=== PATIENT | female | born 1990 | race Caucasian/White ===

== ENCOUNTER 2017-10-24 07:10 | Inpatient (IN) | payer MEDICAID ==
[2017-10-24] MEDS ORDERED: Misoprostol 25 MCG (1/4 of 100 MCG) Tab VAG ONE (08:28)
--- NOTE | 2017-10-24 09:05 | PCM.HP ---
H&P History of Present Illness - General Date of Service: 10/24/17 Admit Problem/Dx: Admission Diagnosis/Problem Admission Diagnosis/Problem Source of Information: Patient History Limitations: Reports: No Limitations - Related Data Allergies/Adverse Reactions: Allergies Allergy/AdvReac Type Severity Reaction Status Date / Time Sulfa (Sulfonamide Allergy Mild Rash Verified 08/16/17 22:53 Antibiotics) potassium clavulanate Allergy Hives Verified 08/16/17 22:53 [From Augmentin] Home Medications: Home Meds NK [No Known Home Meds] 08/30/14 [History] Past Medical History - Past Health History Medical/Surgical History: Denies Medical/Surgical History HEENT History: Reports: None Cardiovascular History: Reports: None Other Cardiovascular History: Ablation for SVT done January 2016. 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 Neurological History: Reports: None Psychiatric History: Reports: Anxiety, Bipolar, Depression Endocrine/Metabolic History: Reports: None Hematologic History: Reports: None Immunologic History: Reports: None Oncologic (Cancer) History: Reports: None Dermatologic History: Reports: None - Infectious Disease History Infectious Disease History: Reports: None - Past Surgical History Head Surgeries/Procedures: Reports: None GI Surgical History: Reports: Hernia, Inguinal Social & Family History - Family History Family Medical History: Noncontributory - Tobacco Use Smoking Status *Q: Current Every Day Smoker Years of Tobacco use: 10 Packs/Tins Daily: 1 Used Tobacco, but Quit: No Second Hand Smoke Exposure: No - Caffeine Use Caffeine Use: Reports: Energy Drinks, Soda - Alcohol Use Days Per Week of Alcohol Use: 0 Number of Drinks Per Day: 1 Total Drinks Per Week: 0 - Recreational Drug Use Recreational Drug Use: No Drug Use in Last 12 Months: Yes Recreational Drug Type: Reports: Marijuana/Hashish H&P Review of Systems - Review of Systems: Review Of Systems: ROS reveals no pertinent complaints other than HPI. Exam - Exam Exam: See Below - Vital Signs Vital Signs: Last Vital Signs Temp 98.8 F 10/24/17 07:30 Pulse 88 10/24/17 07:30 Resp 20 10/24/17 07:30 BP 142/79 H 10/24/17 07:30 Pulse Ox 100 10/24/17 07:30 Weight: 120.202 kg - Exam General: Alert, Oriented, 4 HEENT: PERRLA, Hearing Intact, Mucosa Moist & [place], Nares Patent, Normal Nasal Septum, Posterior Pharynx Clear, Conjunctiva Clear, EOMI, EACs Clear, TMs Clear Neck: Supple, Trachea Midline, 2 Lungs: Clear to Auscultation, Normal Respiratory Effort Cardiovascular: Regular Rate, Regular Rhythm GI/Abdominal Exam: Normal Bowel Sounds, Soft, Non-Tender, No Organomegaly, No Distention, No Abnormal Bruit, No Mass, Pelvis Stable (Female) Exam: Normal External Exam, Normal Speculum Exam, Normal Bimanual Exam Rectal (Female) Exam: Normal Exam, Normal Rectal Tone Back Exam: Normal Inspection, Full Range of Motion, NT Extremities: Normal Inspection, Normal Range of Motion, Non-Tender, No Pedal Edema, Normal Capillary Refill Skin: Warm, Dry, Intact Neurological: Cranial Nerves Intact, Reflexes Equal Bilateral Neuro Extensive - Mental Status: Alert, Oriented x3, Normal Mood/Affect, Normal Cognition Neuro Extensive - Motor, Sensory, Reflexes: CN II-XII Intact, Normal Gait, Normal Reflexes Psychiatric: Alert, Normal Affect, Normal Mood *Q Meaningful Use (ADM) - VTE *Q VTE Criteria *Q: - Stroke *Q Stroke Criteria *Q: - AMI *Q AMI Criteria *Q: - Problem List (1) Elective induction of labor planned SNOMED Code(s): 943998887 ICD Code: [id number] - Status: Acute Current Visit: Yes (2) Term SNOMED Code(s): 08624273 ICD Code: Z34.80 - ENCOUNTER FOR SUPRVSN OF NORMAL , UNSP TRIMESTER Status: Acute Current Visit: Yes Problem List Initiated/Reviewed/Updated: Yes Orders Last 24hrs: Active Orders 24 hr Category Date Time Status Admission Status [Patient Status] [ADT] Routine ADT 10/24/17 07:16 Active
--- NOTE | 2017-10-24 09:20 | PCM.LDHP ---
L&D History of Present Illness - General Date of Service: 10/24/17 Admit Problem/Dx: Admission Diagnosis/Problem Admission Diagnosis/Problem 10/24/17 09:19 27-year-old admitted for induction of labor at term. She plans to give up the baby for adoption. She has no complaints this morning. A has been unremarkable. EDC is 10/31/17 Source of Information: Patient - Related Data Allergies/Adverse Reactions: Allergies Allergy/AdvReac Type Severity Reaction Status Date / Time Sulfa (Sulfonamide Allergy Mild Rash Verified 10/24/17 09:06 Antibiotics) potassium clavulanate Allergy Hives Verified 10/24/17 09:06 [From Augmentin] Home Medications: Home Meds Acetaminophen [Tylenol Extra Strength] 1,000 mg PO Q6HR PRN 10/24/17 [History] Past Medical History - Past Health History Medical/Surgical History: Denies Medical/Surgical History HEENT History: Reports: None Cardiovascular History: Reports: None Other Cardiovascular History: Ablation for SVT done January 2016. 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 Neurological History: Reports: None Psychiatric History: Reports: Anxiety, Bipolar, Depression Endocrine/Metabolic History: Reports: None Hematologic History: Reports: None Immunologic History: Reports: None Oncologic (Cancer) History: Reports: None Dermatologic History: Reports: None - Infectious Disease History Infectious Disease History: Reports: None - Past Surgical History Head Surgeries/Procedures: Reports: None GI Surgical History: Reports: Hernia, Inguinal Social & Family History - Family History Family Medical History: Noncontributory - Tobacco Use Smoking Status *Q: Current Every Day Smoker Years of Tobacco use: 10 Packs/Tins Daily: 1 Used Tobacco, but Quit: No Second Hand Smoke Exposure: No - Caffeine Use Caffeine Use: Reports: Energy Drinks, Soda - Alcohol Use Days Per Week of Alcohol Use: 0 Number of Drinks Per Day: 1 Total Drinks Per Week: 0 - Recreational Drug Use Recreational Drug Use: No Drug Use in Last 12 Months: Yes Recreational Drug Type: Reports: Marijuana/Hashish H&P Review of Systems - Review of Systems: Review Of Systems: ROS reveals no pertinent complaints other than HPI. L&D Exam - Exam Exam: See Below - Vital Signs Vital Signs: Last Vital Signs Temp 98.8 F 10/24/17 07:30 Pulse 88 10/24/17 07:30 Resp 20 10/24/17 07:30 BP 142/79 H 10/24/17 07:30 Pulse Ox 100 10/24/17 07:30 Weight: 120.202 kg - OB Specific Contraction Duration (sec): 30-60 Contraction Frequency (min): 5-19 Contraction Intensity: Mild - Beaulieu Score Beaulieu Score Cervix Position: Midposition Beaulieu Score Consistency: Medium Beaulieu Score Effacement: 51-70% Beaulieu Score Dilation: 3-4 cm Beaulieu Score 's Station: -2 Beaulieu Score Total: 7 - Exam General: Alert, Oriented HEENT: PERRLA, Conjunctiva Clear, EACs Clear, EOMI, Hearing Intact, Mucosa Moist & [place], Nares Patent, Normal Nasal Septum, Posterior Pharynx Clear, TMs Clear Neck: Supple, Trachea Midline Lungs: Clear to Auscultation, Normal Respiratory Effort Cardiovascular: Regular Rate, Regular Rhythm GI/Abdominal Exam: Normal Bowel Sounds, Soft, Non-Tender, No Organomegaly, No Distention, No Abnormal Bruit, No Mass, Pelvis Stable Rectal Exam: Normal Exam, Normal Rectal Tone Genitourinary: Normal external exam, Normal bimanual exam, Normal speculum exam Back Exam: Normal Inspection, Full Range of Motion Extremities: Normal Inspection, Normal Range of Motion, Non-Tender, No Pedal Edema, Normal Capillary Refill Skin: Warm, Dry, Intact Neurological: Cranial Nerves Intact, Reflexes Equal Bilateral Psychiatric: Alert, Normal Affect, Normal Mood - Problem List (1) Elective induction of labor planned SNOMED Code(s): 383993519 ICD Code: [id number] - Status: Acute Current Visit: Yes (2) Term SNOMED Code(s): 36560365 ICD Code: Z34.80 - ENCOUNTER FOR SUPRVSN OF NORMAL , UNSP TRIMESTER Status: Acute Current Visit: Yes Problem List Initiated/Reviewed/Updated: Yes Orders Last 24hrs: Active Orders 24 hr Category Date Time Status Admission Status [Patient Status] [ADT] Routine ADT 10/24/17 07:16 Active Assessment/Plan Comment:: Risks benefits of induction discussed with the patient. We'll start Cytotec induction and that after Pitocin. She's not interested in neuroaxial analgesia
[2017-10-24] MEDS ORDERED: Lactated Ringers 1,000 ML IV SCH (12:00)
[2017-10-24] MEDS ORDERED: Oxytocin/Normal Saline 10 UNIT/1,000 ML BAG IV SCH (12:00)
[2017-10-24] MEDS ORDERED: Nalbuphine 10 MG/1 ML Vial IVPUSH PRN (19:26)
[2017-10-24] MEDS ORDERED: Oxytocin 10 Units/1 ML SDV IM ONE (20:00)
--- NOTE | 2017-10-24 20:07 | PCM.DEL ---
L & D Note - General Info Date of Service: 10/24/17 - Delivery Note Labor: Augmented by ARM, Induced by Oxytocin Cervical Ripening Method: Prostaglandin E2 Delivery Outcome: Livebirth Delivery Method: Spontaneous Vaginal Delivery-Single Presentation: Left Occiput Anterior (STEVE) Nuchal Cord: None Anesthesia Type: Other (see below) (Nubain) Amniotic Fluid Description: Clear Episiotomy Type: None Laceration: None Placenta: Intact, Spontaneous Cord: 3 Vessels Estimated Blood Loss: 200 Resuscitation Needed: No : Suctioned, Bulb Syringe, Stimulated, Warmed, Warmer Used Score 1 min: 9 Score 5 min: 9 Second Stage Interventions: Reports: Second Nurse Assessed Progress of Descent, Second Nurse Reviewed Contraction Pattern, Second Nurse Reviewed Heart Tones, Encouragement Given, Laboring Down, Nurse Consultation Requested, Pushing Effectively, Pushing, Birthing Stool Delivery Comments (Free Text/Narrative):: Delivered after a few pushes. - General Info Date of Service: 10/24/17 Functional Status: Reports: Pain Controlled - Review of Systems General: Reports: No Symptoms HEENT: Reports: No Symptoms Pulmonary: Reports: No Symptoms Cardiovascular: Reports: No Symptoms Gastrointestinal: Reports: No Symptoms Genitourinary: Reports: No Symptoms Musculoskeletal: Reports: No Symptoms Skin: Reports: No Symptoms Neurological: Reports: No Symptoms Psychiatric: Reports: No Symptoms - Patient Data Vitals - Most Recent: Last Vital Signs Temp 99 F 10/24/17 19:17 Pulse 61 10/24/17 19:17 Resp 18 10/24/17 19:17 BP 123/62 10/24/17 19:17 Pulse Ox 100 10/24/17 19:17 Weight - Most Recent: 120.202 kg I&O - Last 24 Hours: Intake & Output 10/24/17 10/24/17 10/24/17 06:59 14:59 22:59 Output Total 100 Balance -100 Med Orders - Current: Current Medications Oxytocin/Sodium Chloride (Pitocin In Ns 10 Units/1,000 Ml) 10 unit in 1,000 mls @ 12 mls/hr IV TITRATE BRITNI; 2 MUNITS/MIN PRN Reason: Protocol Last Titration: 10/24/17 16:24 Dose: 14 munits/min, 84 mls/hr Lactated Ringer's (Ringers, Lactated) 1,000 mls @ 125 mls/hr IV ASDIRECTED BRITNI Last Admin: 10/24/17 12:52 Dose: 125 mls/hr Nalbuphine HCl (Nubain) 10 mg IVPUSH Q3H PRN PRN Reason: Cramping Discontinued Medications Misoprostol (Cytotec) 25 mcg VAG ONETIME ONE Stop: 10/24/17 08:29 Last Admin: 10/24/17 08:39 Dose: 25 mcg - Exam General: Alert, Oriented HEENT: Pupils Equal, Pupils Reactive, EOMI, Mucous Membr. Moist/[place] Neck: Supple Lungs: Clear to Auscultation, Normal Respiratory Effort Cardiovascular: Regular Rate, Regular Rhythm GI/Abdominal Exam: Normal Bowel Sounds, Soft, Non-Tender, No Organomegaly, No Distention, No Abnormal Bruit, No Mass, Pelvis Stable (Female) Exam: Normal External Exam, Normal Speculum Exam, Normal Bimanual Exam Back Exam: Normal Inspection, Full Range of Motion Extremities: Normal Inspection, Normal Range of Motion, Non-Tender, No Pedal Edema, Normal Capillary Refill Skin: Warm, Dry, Intact Wound/Incisions: Healing Well Neurological: No New Focal Deficit Psy/Mental Status: Alert, Normal Affect, Normal Mood - Problem List & Annotations (1) Elective induction of labor planned SNOMED Code(s): 305387532 Code(s): [id number] - Status: Acute Current Visit: Yes (2) Term SNOMED Code(s): 13710598 Code(s): Z34.80 - ENCOUNTER FOR SUPRVSN OF NORMAL , UNSP TRIMESTER Status: Acute Current Visit: Yes (3) Delivery normal SNOMED Code(s): 38263328 Code(s): O80 - ENCOUNTER FOR FULL-TERM UNCOMPLICATED DELIVERY; Z37.9 - OUTCOME OF DELIVERY, UNSPECIFIED Status: Acute Current Visit: Yes - Problem List Review Problem List Initiated/Reviewed/Updated: Yes - My Orders Last 24 Hours: My Active Orders 10/24/17 07:16 Admission Status [Patient Status] [ADT] Routine 10/24/17 11:49 Communication Order [RC] ASDIRECTED Communication Order [RC] ASDIRECTED Communication Order [RC] ASDIRECTED Communication Order [RC] ASDIRECTED Notify Provider [RC] PRN Notify Provider [RC] STAT Vital Signs [RC] PER UNIT ROUTINE 10/24/17 12:00 Lactated Ringers [Ringers, Lactated] 1,000 ml IV ASDIRECTED Oxytocin/Normal Saline [Pitocin in NS 10 UNITS/1,000 ML] 10 unit in 1,000 ml IV TITRATE 10/24/17 16:50 Admission Status [Patient Status] [ADT] Routine 10/24/17 19:01 Code Status [Resuscitation Status] Routine 10/24/17 19:26 Nalbuphine [Nubain] 10 mg IVPUSH Q3H PRN - Plan Plan:: Routine care
[2017-10-25] MEDS: Ibuprofen 600 MG Tab PO PRN ×3 (00:29→21:18)
--- NOTE | 2017-10-25 09:17 | PCM.PNPP ---
- General Info Date of Service: 10/25/17 Functional Status: Reports: Pain Controlled - Review of Systems General: Reports: No Symptoms HEENT: Reports: No Symptoms Pulmonary: Reports: No Symptoms Cardiovascular: Reports: No Symptoms Gastrointestinal: Reports: No Symptoms Genitourinary: Reports: No Symptoms Musculoskeletal: Reports: No Symptoms Skin: Reports: No Symptoms Neurological: Reports: No Symptoms Psychiatric: Reports: No Symptoms - General Info Date of Service: 10/25/17 - Patient Data Vital Signs - Most Recent: Last Vital Signs Temp 97.8 F 10/24/17 21:30 Pulse 75 10/25/17 06:27 Resp 16 10/24/17 23:00 BP 107/47 L 10/25/17 06:27 Pulse Ox 99 10/24/17 20:20 Weight - Most Recent: 120.202 kg Lab Results - Last 24 Hours: Laboratory Results - last 24 hr 10/25/17 Range/Units 06:52 WBC 8.1 (4.5-12.0) X10-3/uL RBC 3.73 (3.23-5.20) x10(6)uL Hgb 9.5 L (11.5-15.5) g/dL Hct 27.6 L (30.0-51.3) % MCV 74.1 L (80-96) fL MCH 25.4 L (27.7-33.6) pg MCHC 34.3 (32.2-35.4) g/dL RDW 15.2 (11.5-15.5) % Plt Count 164 (125-369) X10(3)uL MPV 10.4 (7.4-10.4) fL Neut % (Auto) 69.9 (46-82) % Lymph % (Auto) 17.9 (13-37) % [place] % (Auto) 10.9 (4-12) % Eos % (Auto) 1 (1.0-5.0) % Baso % (Auto) 0 (0-2) % Neut # (Auto) 5.7 (1.6-8.3) # Lymph # (Auto) 1.4 (0.6-5.0) # [place] # (Auto) 0.9 (0.0-1.3) # Eos # (Auto) 0.1 (0.0-0.8) # Baso # (Auto) 0.0 (0.0-0.2) # Med Orders - Current: Current Medications Oxytocin/Sodium Chloride (Pitocin In Ns 10 Units/1,000 Ml) 10 unit in 1,000 mls @ 12 mls/hr IV TITRATE BRITNI; 2 MUNITS/MIN PRN Reason: Protocol Last Titration: 10/24/17 16:24 Dose: 14 munits/min, 84 mls/hr Lactated Ringer's (Ringers, Lactated) 1,000 mls @ 125 mls/hr IV ASDIRECTED BRITNI Last Admin: 10/24/17 12:52 Dose: 125 mls/hr Ibuprofen (Motrin) 600 mg PO Q4H PRN PRN Reason: Pain Last Admin: 10/25/17 00:29 Dose: 600 mg Nalbuphine HCl (Nubain) 10 mg IVPUSH Q3H PRN PRN Reason: Cramping Last Admin: 10/24/17 19:35 Dose: 10 mg Discontinued Medications Misoprostol (Cytotec) 25 mcg VAG ONETIME ONE Stop: 10/24/17 08:29 Last Admin: 10/24/17 08:39 Dose: 25 mcg Oxytocin (Pitocin) 10 unit IM ONETIME ONE Stop: 10/24/17 20:01 Last Admin: 10/24/17 20:30 Dose: 10 unit - Infant Interaction Disposition, : [place] to Nursery Support Person: Mother - Recovery Exam Fundal Tone: Firm Fundal Level: 2 Fingerbreadths Below Umbilicus Fundal Placement: Midline Lochia Amount: Small, Moderate Lochia Color: Rubra/Red Perineum Description: Intact, Minimal Bruising/Swelling Episiotomy/Laceration: None Bladder Status: Nonpalpable Urinary Elimination: Voided - Exam General: Alert, Oriented HEENT: Pupils Equal Neck: Supple Lungs: Clear to Auscultation, Normal Respiratory Effort Cardiovascular: Regular Rate, Regular Rhythm GI/Abdominal Exam: Normal Bowel Sounds, Soft, Non-Tender, No Organomegaly, No Distention, No Abnormal Bruit, No Mass, Pelvis Stable Extremities: Normal Inspection, Normal Range of Motion, Non-Tender, No Pedal Edema, Normal Capillary Refill Skin: Warm, Dry, Intact Wound/Incisions: Healing Well Neurological: No New Focal Deficit Psy/Mental Status: Alert, Normal Affect, Normal Mood - Problem List & Annotations (1) Elective induction of labor planned SNOMED Code(s): 299917764 Code(s): RMC2291 - Status: Acute Current Visit: Yes (2) Term SNOMED Code(s): 28761846 Code(s): Z34.80 - ENCOUNTER FOR SUPRVSN OF NORMAL , UNSP TRIMESTER Status: Acute Current Visit: Yes (3) Delivery normal SNOMED Code(s): 98039326 Code(s): O80 - ENCOUNTER FOR FULL-TERM UNCOMPLICATED DELIVERY; Z37.9 - OUTCOME OF DELIVERY, UNSPECIFIED Status: Acute Current Visit: Yes - Problem List Review Problem List Initiated/Reviewed/Updated: Yes - My Orders Last 24 Hours: My Active Orders 10/24/17 11:49 Communication Order [RC] ASDIRECTED Communication Order [RC] ASDIRECTED Communication Order [RC] ASDIRECTED Communication Order [RC] ASDIRECTED Notify Provider [RC] PRN Notify Provider [RC] STAT Vital Signs [RC] PER UNIT ROUTINE 10/24/17 12:00 Lactated Ringers [Ringers, Lactated] 1,000 ml IV ASDIRECTED Oxytocin/Normal Saline [Pitocin in NS 10 UNITS/1,000 ML] 10 unit in 1,000 ml IV TITRATE 10/24/17 16:50 Admission Status [Patient Status] [ADT] Routine 10/24/17 19:01 Code Status [Resuscitation Status] Routine 10/24/17 19:26 Nalbuphine [Nubain] 10 mg IVPUSH Q3H PRN 10/24/17 20:07 Vital Signs [RC] PFP Ibuprofen [Motrin] 600 mg PO Q4H PRN 10/24/17 20:08 Perineal Care [OM.PC] Per Unit Routine Sitz Bath [OM.PC] Per Unit Routine - Plan Plan:: Routine care -Motrin PRN. DC in AM
[2017-10-26 01:58] VITALS: BP 115/73
--- NOTE | 2017-10-26 08:16 | PCM.PNPP ---
- General Info Date of Service: 10/26/17 Subjective Update: Pt feeling emotional,crying. She is giving up baby for adoption. Functional Status: Reports: Pain Controlled, Tolerating Diet - Review of Systems General: Reports: No Symptoms Psychiatric: Reports: Mood Lability, Anxiety - Patient Data Vital Signs - Most Recent: Last Vital Signs Temp 98 F 10/26/17 00:00 Pulse 67 10/26/17 00:00 Resp 18 10/26/17 00:00 BP 115/73 10/26/17 00:00 Pulse Ox 99 10/26/17 00:00 Weight - Most Recent: 120.202 kg Med Orders - Current: Current Medications Ibuprofen (Motrin) 600 mg PO Q4H PRN PRN Reason: Pain Last Admin: 10/25/17 21:18 Dose: 600 mg Nalbuphine HCl (Nubain) 10 mg IVPUSH Q3H PRN PRN Reason: Cramping Last Admin: 10/24/17 19:35 Dose: 10 mg Discontinued Medications Oxytocin/Sodium Chloride (Pitocin In Ns 10 Units/1,000 Ml) 10 unit in 1,000 mls @ 12 mls/hr IV TITRATE BRITNI; 2 MUNITS/MIN PRN Reason: Protocol Stop: 10/24/17 22:00 Last Titration: 10/24/17 16:24 Dose: 14 munits/min, 84 mls/hr Lactated Ringer's (Ringers, Lactated) 1,000 mls @ 125 mls/hr IV ASDIRECTED BRITNI Stop: 10/24/17 22:00 Last Admin: 10/24/17 12:52 Dose: 125 mls/hr Misoprostol (Cytotec) 25 mcg VAG ONETIME ONE Stop: 10/24/17 08:29 Last Admin: 10/24/17 08:39 Dose: 25 mcg Oxytocin (Pitocin) 10 unit IM ONETIME ONE Stop: 10/24/17 20:01 Last Admin: 10/24/17 20:30 Dose: 10 unit - Infant Interaction Disposition, : [place] to Nursery Support Person: Mother - Recovery Exam Fundal Tone: Firm Fundal Level: 1 Fingerbreadths Below Umbilicus Fundal Placement: Midline Lochia Amount: Small Lochia Color: Rubra/Red Perineum Description: Intact, Minimal Bruising/Swelling Episiotomy/Laceration: None Bladder Status: Nonpalpable Urinary Elimination: Voided - Exam General: Alert, Oriented HEENT: Pupils Equal Psy/Mental Status: Labile Mood, Anxious, Depressed - Problem List & Annotations (1) Elective induction of labor planned SNOMED Code(s): 199479407 Code(s): RKB4719 - Status: Acute Current Visit: Yes (2) Term SNOMED Code(s): 68979563 Code(s): Z34.80 - ENCOUNTER FOR SUPRVSN OF NORMAL , UNSP TRIMESTER Status: Acute Current Visit: Yes (3) Delivery normal SNOMED Code(s): 73891900 Code(s): O80 - ENCOUNTER FOR FULL-TERM UNCOMPLICATED DELIVERY; Z37.9 - OUTCOME OF DELIVERY, UNSPECIFIED Status: Acute Current Visit: Yes (4) Maternity blues SNOMED Code(s): 775996520 Code(s): QOR7529 - Status: Acute Current Visit: Yes - Problem List Review Problem List Initiated/Reviewed/Updated: Yes - My Orders Last 24 Hours: My Active Orders 10/25/17 Dinner Regular Diet [DIET] - Plan Plan:: DC home today. Start Zoloft. PRN Xanax
--- NOTE | 2017-10-26 15:58 | DISCH ---
DISCHARGE DATE: 10/26/2017 REASON FOR ADMISSION: Induction of labor at term. DISCHARGE DIAGNOSES: 1. Spontaneous vaginal delivery at term. 2. blues. BRIEF HISTORY AND HOSPITAL COURSE: This is a 27-year-old female who was admitted for the induction in a controlled environment. She is adopting the baby. She delivered at 39 weeks, full-term, live male with scores of 9 and 9. , she did well. The day before discharge, she was noted to be emotional, crying. She requested something for depression. Vital signs remained stable. Hemoglobin was 9.5 at discharge. The patient was discharged home on Zoloft 50 mg a day and Xanax 0.25 mg b.i.d. p.r.n., 15 tablets only. FOLLOWUP: The patient will see me in 1 week. She is interested in bilateral tubal ligation for contraception. I spent more than 35 minutes in the discharge of the patient. /[id number] FERNY/RHONDA
== END 2017-10-26 08:30 | disposition home or self-care (01) | DRG 775 ==
LOC: FB.OBCHECK 07:10 → FB.OB 07:10 → FB.OBCHECK 07:11 → UNDOADMOB 07:11 → FB.OB 16:50 → OBSVTOIN 16:50
PROVIDERS: ADMIT Family Medicine; ATTEND Family Medicine
PROC: 10E0XZZ Delivery of Products of Conception, External Approach (ICD-10-PCS; principal; 2017-10-24)
PROC: 10907ZC Drainage of Amniotic Fluid, Therapeutic from Products of Conception, Via Natural or Artificial Opening (ICD-10-PCS; 2017-10-24)
PROC: 3E0P7VZ Introduction of Hormone into Female Reproductive, Via Natural or Artificial Opening (ICD-10-PCS; 2017-10-24)
PROC: 3E0P3VZ Introduction of Hormone into Female Reproductive, Percutaneous Approach (ICD-10-PCS; 2017-10-24)
DX: O99.334 Smoking (tobacco) complicating childbirth (principal); Z3A.39 39 weeks gestation of pregnancy; Z37.0 Single live birth; O90.6 Postpartum mood disturbance; Z88.1 Allergy status to other antibiotic agents; Z88.2 Allergy status to sulfonamides
CPT/HCPCS: 36415; 59409; 85025; A9270-GY; J2300; J2590; J7120

== ENCOUNTER 2018-12-18 21:16 | Emergency (ER) | payer SELFPAY ==
--- NOTE | 2018-12-18 21:35 | EDM.PDOC ---
ED HPI GENERAL MEDICAL PROBLEM - General Stated Complaint: RT HAND SWOLLEN Time Seen by Provider: 12/18/18 21:16 Source of Information: Reports: Patient History Limitations: Reports: No Limitations - History of Present Illness INITIAL COMMENTS - FREE TEXT/NARRATIVE: 28 y.o.w.f hit her right hand on an object and noticed a swelling at her right hand lat aspect. No loss of function. FROM of all fingers. Pt had a prev Fx or her right 5th MCP. No N/V/D nor any other acute medical issues. 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 right hand Pain Score (Numeric/FACES): 6 - Related Data Allergies Allergy/AdvReac Type Severity Reaction Status Date / Time Sulfa (Sulfonamide Allergy Mild Rash Verified 10/24/17 09:06 Antibiotics) potassium clavulanate Allergy Hives Verified 10/24/17 09:06 [From Augmentin] Home Meds: Home Meds Acetaminophen [Tylenol Extra Strength] 1,000 mg PO Q6HR PRN 10/24/17 [History] ALPRAZolam [Xanax] 0.25 mg PO BID PRN #15 tab 10/26/17 [Rx] Sertraline HCl [Zoloft] 50 mg PO DAILY #90 tablet 10/26/17 [Rx] Past Medical History - Past Health History Medical/Surgical History: Denies Medical/Surgical History HEENT History: Reports: None Cardiovascular History: Reports: None Other Cardiovascular History: Ablation for SVT done January 2016. 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 Neurological History: Reports: None Psychiatric History: Reports: Anxiety, Bipolar, Depression Endocrine/Metabolic History: Reports: None Hematologic History: Reports: None Immunologic History: Reports: None Oncologic (Cancer) History: Reports: None Dermatologic History: Reports: None - Infectious Disease History Infectious Disease History: Reports: None - Past Surgical History Head Surgeries/Procedures: Reports: None GI Surgical History: Reports: Hernia, Inguinal Social & Family History - Family History Family Medical History: Noncontributory - Caffeine Use Caffeine Use: Reports: Energy Drinks, Soda Review of Systems - Review of Systems Review Of Systems: See Below Constitutional: Reports: No Symptoms Eyes: Reports: No Symptoms Ears: Reports: No Symptoms Nose: Reports: No Symptoms Mouth/Throat: Reports: No Symptoms Respiratory: Reports: No Symptoms Cardiovascular: Reports: No Symptoms GI/Abdominal: Reports: No Symptoms Genitourinary: Reports: No Symptoms Musculoskeletal: Reports: Hand Pain Skin: Reports: No Symptoms, Bruising Neurological: Reports: No Symptoms Psychiatric: Reports: No Symptoms ED EXAM, GENERAL - Physical Exam Exam: See Below Exam Limited By: No Limitations General Appearance: Alert, WD/WN, Mild Distress Eye Exam: Bilateral Eye: Normal Inspection Ears: Normal External Exam Ear Exam: Bilateral Ear: Auricle Normal Nose: Normal Inspection, Normal Mucosa, No Blood Throat/Mouth: Normal Inspection, Normal Lips, Normal Voice, No Airway Compromise Head: Atraumatic, Normocephalic Neck: Normal Inspection, Supple, Non-Tender, Full Range of Motion Respiratory/Chest: No Respiratory Distress, Lungs Clear, Normal Breath Sounds, No Accessory Muscle Use, Chest Non-Tender Cardiovascular: Normal Peripheral Pulses, Regular Rate, Rhythm, No Edema, No Gallop, No Murmur, No Rub Peripheral Pulses: 1+: Brachial (L) GI/Abdominal: Normal Bowel Sounds, Soft, Non-Tender, No Organomegaly, No Mass (Female) Exam: Deferred Rectal (Female) Exam: Deferred Back Exam: Normal Inspection, Full Range of Motion Extremities: Normal Inspection, Normal Range of Motion, Non-Tender, No Pedal Edema, Normal Capillary Refill Neurological: Alert, Oriented, CN II-XII Intact, Normal Cognition, Normal Gait Psychiatric: Normal Affect, Normal Mood Skin Exam: Warm, Dry, Other (minor bruice right hand lat aspect) Lymphatic: No Adenopathy Course - Vital Signs Text/Narrative:: 28 y.o.w.f hit her right hand on an object and noticed a swelling at her right hand lat aspect. No loss of function. FROM of all fingers. Pt had a prev Fx or her right 5th MCP. No N/V/D nor any other acute medical issues. BP 131/79 RR 18 Pulse ox 100% on RA Temp 36.8 Pulse 82 PE: WNWD W F with right hand discofort/swelling Imaging: X Ray right hand: NAD, official report is pending Impression: R hand pain/sprain Tx: ICE. 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 Plan: D/C with instructions Last Recorded V/S: Last Vital Signs Temp 36.6 C 12/18/18 22:25 Pulse 86 12/18/18 22:25 Resp 17 12/18/18 22:25 BP 130/63 12/18/18 22:25 Pulse Ox 100 12/18/18 22:25 - Orders/Labs/Meds Orders: Active Orders 24 hr Category Date Time Status Hand Comp Min 3V Rt [CR] Stat Exams 12/18/18 21:34 Taken Departure - Departure Time of Disposition: 22:10 Disposition: Home, Self-Care 01 Condition: Good Clinical Impression: Sprain of hand, right Qualifiers: Encounter type: initial encounter Qualified Code(s): S63.91XA - Sprain of unspecified part of right wrist and hand, initial encounter - Discharge Information Instructions: Wrist Sprain, Adult, Finger Sprain, Adult Referrals: Alfonso Vilchis MD [Primary Care Provider] - Forms: ED Department Discharge Additional Instructions: Ice, rest elevation, Motrin for pain, please f/u, come back if your symptoms get worse acutely - My Orders Last 24 Hours: My Active Orders 12/18/18 21:34 Hand Comp Min 3V Rt [CR] Stat - Assessment/Plan Last 24 Hours: My Active Orders 12/18/18 21:34 Hand Comp Min 3V Rt [CR] Stat
[2018-12-18 23:02] VITALS: BP 130/63
== END 2018-12-18 22:25 | disposition home or self-care (01) ==
LOC: FB.ED 21:16
DX: S63.91XA Sprain of unspecified part of right wrist and hand, initial encounter (principal); F41.9 Anxiety disorder, unspecified; F31.9 Bipolar disorder, unspecified; Z88.2 Allergy status to sulfonamides; Z79.899 Other long term (current) drug therapy; Z88.1 Allergy status to other antibiotic agents; X58.XXXA Exposure to other specified factors, initial encounter
CPT/HCPCS: 73130-RT; 99283

== ENCOUNTER 2019-08-25 14:02 | Emergency (ER) | payer MEDICAID ==
[2019-08-25] MEDS ORDERED: Ketorolac 30 MG/ML SDV IVPUSH ONE (14:13)
[2019-08-25] MEDS ORDERED: Ondansetron 4 MG/2 ML SDV IVPUSH ONE (14:13)
[2019-08-25] MEDS ORDERED: Sodium Chloride 0.9% 1,000 ML IV SCH (14:15)
[2019-08-25] MEDS ORDERED: Iopamidol 755 Mg/ML 100 ML Bottle IV ONE (15:11)
--- NOTE | 2019-08-25 15:15 | EDM.PDOC ---
ED HPI GENERAL MEDICAL PROBLEM - General Chief Complaint: Abdominal Pain Stated Complaint: RIGHT SIDE PAIN AND NAUSEA Time Seen by Provider: 08/25/19 14:10 Source of Information: Reports: Patient - History of Present Illness INITIAL COMMENTS - FREE TEXT/NARRATIVE: Patient is a 29 YO WF who presented to the ED because of RLQ pain,03/30, with associated N/V. She denies having any fever,chills urinary symptoms or changes in bowel movements. right lower abdomen Pain Score (Numeric/FACES): 6 - Related Data Allergies Allergy/AdvReac Type Severity Reaction Status Date / Time Sulfa (Sulfonamide Allergy Mild Rash Verified 10/24/17 09:06 Antibiotics) potassium clavulanate Allergy Hives Verified 10/24/17 09:06 [From Augmentin] Home Meds: Home Meds Ibuprofen 600 mg PO Q6HR PRN 08/25/19 [History] Past Medical History - Past Health History Medical/Surgical History: Denies Medical/Surgical History HEENT History: Reports: None Cardiovascular History: Reports: None Other Cardiovascular History: Ablation for SVT done January 2016. 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 Neurological History: Reports: None Psychiatric History: Reports: Anxiety, Bipolar, Depression Endocrine/Metabolic History: Reports: None Hematologic History: Reports: None Immunologic History: Reports: None Oncologic (Cancer) History: Reports: None Dermatologic History: Reports: None - Infectious Disease History Infectious Disease History: Reports: None - Past Surgical History Head Surgeries/Procedures: Reports: None GI Surgical History: Reports: Hernia, Inguinal Social & Family History - Family History Family Medical History: Noncontributory - Caffeine Use Caffeine Use: Reports: Energy Drinks, Soda ED ROS GENERAL - Review of Systems Review Of Systems: See Below Constitutional: Reports: No Symptoms HEENT: Reports: No Symptoms Respiratory: Reports: No Symptoms, Shortness of Breath, Wheezing Cardiovascular: Reports: No Symptoms, Chest Pain, Blood Pressure Problem GI/Abdominal: Reports: Abdominal Pain, Nausea. Denies: Vomiting : Reports: No Symptoms. Denies: Discharge, Dysuria, Flank Pain, Frequency Musculoskeletal: Reports: No Symptoms Skin: Reports: No Symptoms Neurological: Reports: No Symptoms ED EXAM, GI/ABD - Physical Exam Exam: See Below Exam Limited By: No Limitations General Appearance: Alert, WD/WN, No Apparent Distress Ears: Normal External Exam, Normal Canal, Hearing Grossly Normal Nose: Normal Inspection, Normal Mucosa, No Blood Throat/Mouth: Normal Inspection, Normal Lips, Normal Teeth, Normal Voice Head: Atraumatic, Normocephalic, Facial Swelling Neck: Normal Inspection, Supple, Non-Tender, Full Range of Motion Respiratory/Chest: No Accessory Muscle Use, Chest Non-Tender Cardiovascular: Normal Peripheral Pulses, Regular Rate, Rhythm, No Edema, No Gallop GI/Abdominal Exam: Normal Bowel Sounds, Other (RLQ tenderness) Back Exam: Normal Inspection Extremities: Normal Inspection, Normal Range of Motion Neurological: Alert, Oriented, CN II-XII Intact, Normal Cognition Psychiatric: Normal Affect, Normal Mood, Anxious Skin Exam: Warm, Dry Course - Vital Signs Text/Narrative:: Labs reviewed and discussed with patient 1 L NS bolus zofran 4 mg IV x1 Toradol [address] abd/pelvis-see result Last Recorded V/S: Last Vital Signs Temp 36.9 C 08/25/19 14:05 Pulse 85 08/25/19 16:30 Resp 15 08/25/19 16:30 BP 117/76 08/25/19 16:30 Pulse Ox 100 08/25/19 16:30 - Orders/Labs/Meds Orders: Active Orders 24 hr Category Date Time Status Abdomen Pelvis w Cont [CT] Stat Exams 08/25/19 14:11 Taken Sodium Chloride 0.9% [Normal Saline] 1,000 ml Med 08/25/19 14:15 Active IV ASDIRECTED traMADol [Ultram] Med 08/25/19 17:18 Once 100 mg PO ONETIME ONE Medication Orders Sodium Chloride (Normal Saline) 1,000 mls @ 999 mls/hr IV ASDIRECTED BRITNI Last Admin: 08/25/19 14:29 Dose: 999 mls/hr Tramadol HCl (Ultram) 100 mg PO ONETIME ONE Stop: 08/25/19 17:19 Labs: Laboratory Tests 08/25/19 08/25/19 08/25/19 Range/Units 14:30 14:30 14:30 WBC 3.2 L (4.5-12.0) X10-3/uL RBC 4.49 (3.23-5.20) x10(6)uL Hgb 11.8 (11.5-15.5) g/dL Hct 35.6 (30.0-51.3) % MCV 79.2 L (80-96) fL MCH 26.2 L (27.7-33.6) pg MCHC 33.0 (32.2-35.4) g/dL RDW 15.9 H (11.5-15.5) % Plt Count 159 (125-369) X10(3)uL MPV 9.7 (7.4-10.4) fL Add Manual Diff Yes Neutrophils % (Manual) 56 (46-82) % Lymphocytes % (Manual) 29 (13-37) % Monocytes % (Manual) 15 H (4-12) % Sodium 139 (135-145) mmol/L Potassium 4.2 (3.5-5.3) mmol/L Chloride 104 (100-110) mmol/L Carbon Dioxide 29 (21-32) mmol/L BUN 9 (7-18) mg/dL Creatinine 0.7 (0.55-1.02) mg/dL Est Cr Clr Drug Dosing TNP Estimated GFR (MDRD) > 60 (>60) BUN/Creatinine Ratio 12.9 (9-20) Glucose 94 (80-116) mg/dL Calcium 9.1 (8.6-10.2) mg/dL Total Bilirubin 0.3 (0.1-1.3) mg/dL AST 19 (5-25) IU/L ALT 21 (12-36) U/L Alkaline Phosphatase 55 L (56-112) IU/L Total Protein 7.3 (6.0-8.0) g/dL Albumin 3.7 (3.5-5.2) g/dL Globulin 3.6 g/dL Albumin/Globulin Ratio 1.0 Amylase 35 (25-115) U/L Lipase 118 (73-393) U/L Urine Color (YELLOW) Urine Appearance (CLEAR) Urine pH (5.0-6.5) Ur Specific [place] (1.010-1.025) Urine Protein (NEGATIVE) mg/dL Urine Glucose (UA) (NORMAL) mg/dL Urine Ketones (NEGATIVE) mg/dL Urine Occult Blood (NEGATIVE) Urine Nitrite (NEGATIVE) Urine Bilirubin (NEGATIVE) Urine Urobilinogen (NEGATIVE) mg/dL Ur Leukocyte Esterase (NEGATIVE) Urine RBC (0-5) Urine WBC (0-5) Ur Squamous Epith Cells (NS,R,O) Amorphous Sediment Urine Bacteria (NS) Urine HCG, Qual (NEGATIVE) 08/25/19 08/25/19 Range/Units 15:07 15:07 WBC (4.5-12.0) X10-3/uL RBC (3.23-5.20) x10(6)uL Hgb (11.5-15.5) g/dL Hct (30.0-51.3) % MCV (80-96) fL MCH (27.7-33.6) pg MCHC (32.2-35.4) g/dL RDW (11.5-15.5) % Plt Count (125-369) X10(3)uL MPV (7.4-10.4) fL Add Manual Diff Neutrophils % (Manual) (46-82) % Lymphocytes % (Manual) (13-37) % Monocytes % (Manual) (4-12) % Sodium (135-145) mmol/L Potassium (3.5-5.3) mmol/L Chloride (100-110) mmol/L Carbon Dioxide (21-32) mmol/L BUN (7-18) mg/dL Creatinine (0.55-1.02) mg/dL Est Cr Clr Drug Dosing Estimated GFR (MDRD) (>60) BUN/Creatinine Ratio (9-20) Glucose (80-116) mg/dL Calcium (8.6-10.2) mg/dL Total Bilirubin (0.1-1.3) mg/dL AST (5-25) IU/L ALT (12-36) U/L Alkaline Phosphatase (56-112) IU/L Total Protein (6.0-8.0) g/dL Albumin (3.5-5.2) g/dL Globulin g/dL Albumin/Globulin Ratio Amylase (25-115) U/L Lipase (73-393) U/L Urine Color Yellow (YELLOW) Urine Appearance Clear (CLEAR) Urine pH 6.0 (5.0-6.5) Ur Specific [place] 1.025 (1.010-1.025) Urine Protein Negative (NEGATIVE) mg/dL Urine Glucose (UA) Normal (NORMAL) mg/dL Urine Ketones 15 H (NEGATIVE) mg/dL Urine Occult Blood Negative (NEGATIVE) Urine Nitrite Negative (NEGATIVE) Urine Bilirubin Small H (NEGATIVE) Urine Urobilinogen Normal (NEGATIVE) mg/dL Ur Leukocyte Esterase Negative (NEGATIVE) Urine RBC 0-5 (0-5) Urine WBC 0-5 (0-5) Ur Squamous Epith Cells Few H (NS,R,O) Amorphous Sediment Few Urine Bacteria Few H (NS) Urine HCG, Qual Negative (NEGATIVE) Meds: Medications Generic Name Dose Route Start Last Admin Trade Name Freq PRN Reason Stop Dose Admin Sodium Chloride 1,000 mls @ 999 mls/hr 08/25/19 14:15 08/25/19 14:29 Normal Saline IV 999 mls/hr ASDIRECTED BRITNI Administration Tramadol HCl 100 mg 08/25/19 17:18 Ultram PO 08/25/19 17:19 ONETIME ONE Discontinued Medications Generic Name Dose Route Start Last Admin Trade Name Freq PRN Reason Stop Dose Admin Iopamidol 100 ml 08/25/19 15:11 08/25/19 15:26 Isovue-370 (76%) IV 08/25/19 15:12 100 ml . DIRECTED ONE Administration Ketorolac Tromethamine 30 mg 08/25/19 14:13 08/25/19 14:28 Toradol IVPUSH 08/25/19 14:14 30 mg ONETIME ONE Administration Ondansetron HCl 4 mg 08/25/19 14:13 08/25/19 14:28 Zofran IVPUSH 08/25/19 14:14 4 mg ONETIME ONE Administration Departure - Departure Time of Disposition: 17:00 Disposition: Home, Self-Care 01 Condition: Good Clinical Impression: Ovulation pain - Discharge Information *PRESCRIPTION DRUG MONITORING PROGRAM REVIEWED*: No *COPY OF PRESCRIPTION DRUG MONITORING REPORT IN PATIENT JAYY: No Referrals: Alfonso Vilchis MD [Primary Care Provider] - Forms: ED Department Discharge Additional Instructions: please read discharge instructions on ovulation pain Take tramadol 100 mg with tylenol 1000 mg and ibuprofen 800 mg every 8 hours as needed for pain Follow up as needed - My Orders Last 24 Hours: My Active Orders 08/25/19 14:11 Abdomen Pelvis w Cont [CT] Stat 08/25/19 14:15 Sodium Chloride 0.9% [Normal Saline] 1,000 ml IV ASDIRECTED 08/25/19 17:18 traMADol [Ultram] 100 mg PO ONETIME ONE - Assessment/Plan Last 24 Hours: My Active Orders 08/25/19 14:11 Abdomen Pelvis w Cont [CT] Stat 08/25/19 14:15 Sodium Chloride 0.9% [Normal Saline] 1,000 ml IV ASDIRECTED 08/25/19 17:18 traMADol [Ultram] 100 mg PO ONETIME ONE
[2019-08-25] MEDS ORDERED: traMADol 50 MG Tab PO ONE (17:18)
[2019-08-25 17:58] VITALS: BP 107/86; PULSE 78
== END 2019-08-25 17:35 | disposition home or self-care (01) ==
LOC: FB.ED 14:02
DX: N94.0 Mittelschmerz (principal); F17.200 Nicotine dependence, unspecified, uncomplicated; Z88.2 Allergy status to sulfonamides; Z88.1 Allergy status to other antibiotic agents
CPT/HCPCS: 36415; 74177; 80053; 81001; 81025; 82150; 83690; 85025; 96361; 96374; 96375; 99284; A9270; J1885; J2405; J7030; Q9967

== ENCOUNTER 2020-04-27 19:24 | Emergency (ER) | payer MEDICAID ==
--- NOTE | 2020-04-27 19:27 | EDM.PDOC ---
ED HPI GENERAL MEDICAL PROBLEM - General Stated Complaint: FINGER LACERATION Time Seen by Provider: 04/27/20 19:25 Source of Information: Reports: Patient History Limitations: Reports: No Limitations - History of Present Illness INITIAL COMMENTS - FREE TEXT/NARRATIVE: 29 yo F who presented to the ER with Laceration right Thumb. she had moderate bleeding from the wound. Last tetanus immunization was in 2013. Patient presented to the ER for further evaluation. Onset: Today Duration: Hour(s): (1 hour) Location: Reports: Upper Extremity, Right Associated Symptoms: Reports: No Other Symptoms - Related Data Allergies Allergy/AdvReac Type Severity Reaction Status Date / Time Sulfa (Sulfonamide Allergy Mild Rash Verified 10/24/17 09:06 Antibiotics) potassium clavulanate Allergy Hives Verified 10/24/17 09:06 [From Augmentin] Home Meds: Home Meds Ibuprofen 600 mg PO Q6HR PRN 08/25/19 [History] Past Medical History - Past Health History Medical/Surgical History: Denies Medical/Surgical History HEENT History: Reports: None Cardiovascular History: Reports: None Other Cardiovascular History: Ablation for SVT done January 2016. 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 Neurological History: Reports: None Psychiatric History: Reports: Anxiety, Bipolar, Depression Endocrine/Metabolic History: Reports: None Hematologic History: Reports: None Immunologic History: Reports: None Oncologic (Cancer) History: Reports: None Dermatologic History: Reports: None - Infectious Disease History Infectious Disease History: Reports: None - Past Surgical History Head Surgeries/Procedures: Reports: None GI Surgical History: Reports: Hernia, Inguinal Social & Family History - Family History Family Medical History: Noncontributory - Caffeine Use Caffeine Use: Reports: Energy Drinks, Soda ED ROS GENERAL - Review of Systems Review Of Systems: See Below Constitutional: Reports: No Symptoms HEENT: Reports: No Symptoms Respiratory: Reports: No Symptoms Cardiovascular: Reports: No Symptoms Endocrine: Reports: No Symptoms GI/Abdominal: Reports: No Symptoms : Reports: No Symptoms Musculoskeletal: Reports: Other (Laceration right Thumb) Skin: Reports: No Symptoms Neurological: Reports: No Symptoms Psychiatric: Reports: No Symptoms Hematologic/Lymphatic: Reports: No Symptoms Immunologic: Reports: No Symptoms ED EXAM, GENERAL - Physical Exam Exam: See Below Exam Limited By: No Limitations General Appearance: Alert, WD/WN, No Apparent Distress Eye Exam: Bilateral Eye: EOMI Ears: Normal External Exam, Normal Canal, Hearing Grossly Normal Ear Exam: Bilateral Ear: TM normal Nose: Normal Inspection, Normal Mucosa, No Blood Throat/Mouth: Normal Inspection, Normal Lips, Normal Teeth Neck: Normal Inspection, Supple, Non-Tender, Full Range of Motion Respiratory/Chest: No Respiratory Distress, Lungs Clear Cardiovascular: Normal Peripheral Pulses, Regular Rate, Rhythm, No Edema GI/Abdominal: Normal Bowel Sounds, Soft, Non-Tender, No Organomegaly Back Exam: Normal Inspection, Full Range of Motion Extremities: Normal Inspection, Other (Right Thumb -- 1 cm Laceration distal phalanx of right Thumb) Neurological: Alert, Oriented, CN II-XII Intact, Normal Cognition Psychiatric: Normal Affect, Normal Mood Skin Exam: Warm Lymphatic: No Adenopathy ED GENERAL MEDICAL PROCEDURES - Laceration/Wound Repair Right Digit - 1st (Thumb) Appearance: Superficial Distal NVT: Neuro & Vascular Intact Skin Prep: Saline Closed with: Dermabond Sterile Dressing Applied: Nurse Course - Vital Signs Last Recorded V/S: Last Vital Signs Temp 36.7 C 04/27/20 19:43 Pulse 94 04/27/20 19:43 Resp 16 04/27/20 19:43 BP 122/89 04/27/20 19:43 Pulse Ox 99 04/27/20 19:43 Departure - Departure Time of Disposition: 19:53 Disposition: Home, Self-Care 01 Condition: Good Clinical Impression: Laceration of right thumb - Discharge Information Referrals: Alfonso Vilchis MD [Primary Care Provider] - Forms: ED Department Discharge Additional Instructions: Follow with PCP Return if symptoms worsen Call your Physician or Return to Emergency Department if: * Your condition worsens in any way. * You develop fever greater than 100.4. * You have vomitting that does not stop with medications. * You have pain that is not controlled with medications. Sepsis Event Note - Focused Exam Vital Signs: Vital Signs Temp Pulse Resp BP Pulse Ox 04/27/20 19:43 36.7 C 94 16 122/89 99 Date Exam was Performed: 04/27/20 Time Exam was Performed: 19:48
[2020-04-27 19:45] VITALS: BP 122/89; PULSE 94
[2020-04-27] MEDS ORDERED: Diphtheria,Pertussis(Acell),Tetanus Vaccine 0.5 ML SDV IM ONE (19:49)
== END 2020-04-27 19:58 | disposition home or self-care (01) ==
LOC: FB.ED 19:24
DX: S61.011A Laceration without foreign body of right thumb without damage to nail, initial encounter (principal); Z88.2 Allergy status to sulfonamides; Z88.8 Allergy status to other drugs, medicaments and biological substances; Z23 Encounter for immunization; W26.9XXA Contact with unspecified sharp object(s), initial encounter
CPT/HCPCS: 12001; 90471; 90715; 99282

== ENCOUNTER 2021-01-25 17:43 | Emergency (ER) | payer MEDICAID ==
[2021-01-25 18:25] VITALS: BP 127/73; PULSE 86
--- NOTE | 2021-01-25 18:35 | EDM.PDOC ---
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 from doing so now has 3 children ages 7 and 8 and 10, 2 boys, youngest a girl right handed Right Wrist Pain Score (Numeric/FACES): 2 - Related Data Allergies Allergy/AdvReac Type Severity Reaction Status Date / Time Sulfa (Sulfonamide Allergy Mild Rash Verified 10/24/17 09:06 Antibiotics) potassium clavulanate Allergy Hives Verified 10/24/17 09:06 [From Augmentin] Home Meds: Home Meds Ibuprofen 600 mg PO Q6HR PRN 08/25/19 [History] Past Medical History - Past Health History Medical/Surgical History: Denies Medical/Surgical History HEENT History: Reports: None Cardiovascular History: Reports: None Other Cardiovascular History: Ablation for SVT done January 2016. 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 Neurological History: Reports: None Psychiatric History: Reports: Anxiety, Bipolar, Depression Endocrine/Metabolic History: Reports: None Hematologic History: Reports: None Immunologic History: Reports: None Oncologic (Cancer) History: Reports: None Dermatologic History: Reports: None - Infectious Disease History Infectious Disease History: Reports: None - Past Surgical History Head Surgeries/Procedures: Reports: None GI Surgical History: Reports: Hernia, Inguinal Social & Family History - Family History Family Medical History: No Pertinent Family History - Caffeine Use Caffeine Use: Reports: Energy Drinks, Soda ED ROS GENERAL - Review of Systems Review Of Systems: See Below Constitutional: Reports: No Symptoms HEENT: Reports: No Symptoms Respiratory: Reports: No Symptoms Cardiovascular: Reports: No Symptoms Endocrine: Reports: No Symptoms GI/Abdominal: Reports: No Symptoms : Reports: No Symptoms Musculoskeletal: Reports: No Symptoms Skin: Reports: Wound Neurological: Reports: No Symptoms Psychiatric: Reports: No Symptoms Hematologic/Lymphatic: Reports: No Symptoms Immunologic: Reports: No Symptoms ED EXAM, SKIN/RASH Exam: See Below Exam Limited By: No Limitations General Appearance: Alert, WD/WN, No Apparent Distress, Other (pleasant, cooperative, answers questions, conversant, no mood disorder) Head: Atraumatic, Normocephalic Neck: Normal Inspection, Supple, Non-Tender, Full Range of Motion Respiratory/Chest: No Respiratory Distress Cardiovascular: Regular Rate, Rhythm Psychiatric: Normal Affect, Normal Mood. No: Anxious, Depressed Mood, Flat Affect, Tearful Skin: Warm, Dry, Other (R forearm with a superficial scratch and parallel and lower is a horizontal 5 cm lac with 1 cm gap, into fat, not deeper, not near radial/ulnar arteries, 1% lido with epi with #30 needle local, cleaned with gauze and NS x 10, 3-0 Prolene x 4 with good apposition of margins, tolerated well) Lymphatic: No Adenopathy Course - Vital Signs Last Recorded V/S: Last Vital Signs Temp 36.8 C 01/25/21 17:57 Pulse 86 01/25/21 17:57 Resp 18 01/25/21 17:57 BP 127/73 01/25/21 17:57 Pulse Ox 100 01/25/21 17:57 - Re-Assessments/Exams Free Text/Narrative Re-Assessment/Exam: 01/25/21 19:32 JAMES Roberts knows pt well, pt grew in up in [facility], Alejandra talked to pt at length prior to d/c, did not think pt had a active mood disorder or had engaged in self injury Departure - Departure Time of Disposition: 18:29 Disposition: Home, Self-Care 01 Condition: Good Clinical Impression: Laceration of right forearm - Discharge Information *PRESCRIPTION DRUG MONITORING PROGRAM REVIEWED*: Not Applicable *COPY OF PRESCRIPTION DRUG MONITORING REPORT IN PATIENT JAYY: Not Applicable Instructions: Laceration Care, Adult Referrals: Alfonso Vilchis MD [Primary Care Provider] - Forms: ED Department Discharge Additional Instructions: Keep clean and dry and covered with a dressing. See your doctor in 8 days to remove sutures. While infection is unlikely, see a physician the same day for any increase, in redness, swelling, warmth, fever, pain or drainage. Sepsis Event Note (ED) - Evaluation Sepsis Screening Result: No Definite Risk - Focused Exam Vital Signs: Vital Signs Temp Pulse Resp BP Pulse Ox 01/25/21 17:57 36.8 C 86 18 127/73 100
== END 2021-01-25 18:45 | disposition home or self-care (01) ==
LOC: FB.ED 17:43
DX: S51.811A Laceration without foreign body of right forearm, initial encounter (principal); Z88.2 Allergy status to sulfonamides; Z88.1 Allergy status to other antibiotic agents; Z87.891 Personal history of nicotine dependence; W26.8XXA Contact with other sharp object(s), not elsewhere classified, initial encounter
CPT/HCPCS: 12002; 99282; 99282-25

== ENCOUNTER 2021-09-20 07:52 | Emergency (ER) | payer MEDICAID, OTHER ==
[2021-09-20 08:14] VITALS: BP 113/65; PULSE 104
--- NOTE | 2021-09-20 14:40 | EDM.PDOC ---
ED HPI GENERAL MEDICAL PROBLEM - General Chief Complaint: Flank Pain Stated Complaint: POSSIBLE KIDNEY INFECTION Time Seen by Provider: 09/20/21 08:15 Source of Information: Reports: Patient - History of Present Illness INITIAL COMMENTS - FREE TEXT/NARRATIVE: pt left AMA , left shortly after arrival while her UA is pending and prior to being seen , she was contacted several times over the phone with no response from pt, her mother was contacted as well to inform a the pt to return to ER to review lab results. pt presented this morning with urinary sx and back pain , has stable vitals and was coherent. Bilateral Flank Pain Score (Numeric/FACES): 9 - Related Data Allergies Allergy/AdvReac Type Severity Reaction Status Date / Time Sulfa (Sulfonamide Allergy Mild Rash Verified 09/20/21 08:40 Antibiotics) potassium clavulanate Allergy Hives Verified 09/20/21 08:40 [From Augmentin] Home Meds: Home Meds Ibuprofen 600 mg PO Q6HR PRN 08/25/19 [History] Nitrofurantoin Monohyd/M-Cryst [Macrobid 100 mg Capsule] 100 mg PO BID 10 Days #20 capsule 09/20/21 [Rx] Past Medical History - Past Health History Medical/Surgical History: Denies Medical/Surgical History HEENT History: Reports: None Cardiovascular History: Reports: None Other Cardiovascular History: Ablation for SVT done January 2016. 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 Neurological History: Reports: None Psychiatric History: Reports: Anxiety, Bipolar, Depression Endocrine/Metabolic History: Reports: None Hematologic History: Reports: None Immunologic History: Reports: None Oncologic (Cancer) History: Reports: None Dermatologic History: Reports: None - Infectious Disease History Infectious Disease History: Reports: None, Chicken Pox - Past Surgical History Head Surgeries/Procedures: Reports: None Other Cardiovascular Surgeries/Procedures: ablation for svt x2 2017 GI Surgical History: Reports: Hernia, Inguinal Other GI Surgeries/Procedures: Inguinal hernia repair as an infant. Social & Family History - Family History Family Medical History: No Pertinent Family History - Tobacco Use Years of Tobacco use: 15 Packs/Tins Daily: 1 - Caffeine Use Caffeine Use: Reports: Coffee - Recreational Drug Use Recreational Drug Use: No ED ROS GENERAL - Review of Systems Review Of Systems: Unable To Obtain (left prior to evaluation) Reason Not Obtained: pt left AMA ED EXAM, GENERAL - Physical Exam Exam: See Below (pt left prior to evaluation) Course - Vital Signs Text/Narrative:: pt left AMA , left shortly after arrival while her UA is pending and prior to being seen , she was contacted several times over the phone with no response from pt, her mother was contacted as well to inform a the pt to return to ER to review lab results. pt presented this morning with urinary sx and back pain , has stable vitals and was coherent. labs results shows UTI and elevated WBCs , pt may have also pyelonephritis , she has not responded to our phone calls and Rx for Macrobid will be called in to her pharmacy. Last Recorded V/S: Last Vital Signs Temp 36.4 C 09/20/21 07:52 Pulse 104 H 09/20/21 07:52 Resp 19 09/20/21 07:52 BP 113/65 09/20/21 07:52 Pulse Ox 99 09/20/21 07:52 - Orders/Labs/Meds Orders: Active Orders 24 hr Category Date Time Status CULTURE URINE [RM] Stat Lab 09/20/21 08:15 Received Labs: Laboratory Tests 09/20/21 09/20/21 09/20/21 Range/Units 08:15 08:20 08:20 WBC 17.0 H (3.0-10.3) x10-3/uL RBC 4.86 (3.60-5.20) x10(6)uL Hgb 10.5 L (11.4-15.5) g/dL Hct 34.5 (34.2-48.2) % MCV 70.9 L (76.7-100.5) fL MCH 21.6 L (23.9-33.9) pg MCHC 30.5 L (31.9-34.8) g/dL RDW 17.1 H (12.3-16.5) % Plt Count 328 (151-488) x10(3)uL MPV 8.5 (7.1-12.4) fL Add Manual Diff Yes Neutrophils % (Manual) 68 (46-82) % Band Neutrophils % 1 (0-6) % Lymphocytes % (Manual) 14 (13-37) % Monocytes % (Manual) 16 H (4-12) % Eosinophils % (Manual) 1 (0-5) % Anisocytosis Few Microcytosis Few Ovalocytes Few Sodium 136 (135-145) mmol/L Potassium 4.1 (3.5-5.3) mmol/L Chloride 102 (100-110) mmol/L Carbon Dioxide 26 (21-32) mmol/L BUN 10 (7-18) mg/dL Creatinine 0.9 (0.55-1.02) mg/dL Est Cr Clr Drug Dosing TNP Estimated GFR (MDRD) > 60 (>60) BUN/Creatinine Ratio 11.1 (9-20) Glucose 113 (80-116) mg/dL Calcium 8.5 L (8.6-10.2) mg/dL Total Bilirubin 0.4 (0.1-1.3) mg/dL AST 11 D (5-25) IU/L ALT 16 D (12-36) U/L Alkaline Phosphatase 72 (56-112) IU/L Total Protein 7.4 (6.0-8.0) g/dL Albumin 3.1 L (3.5-5.2) g/dL Globulin 4.3 g/dL Albumin/Globulin Ratio 0.7 Urine Color Yellow (YELLOW) Urine Appearance Cloudy (CLEAR) Urine pH 6.0 (5.0-6.5) Ur Specific [place] 1.015 (1.010-1.025) Urine Protein 100 H (NEGATIVE) mg/dL Urine Glucose (UA) Normal (NORMAL) mg/dL Urine Ketones Negative (NEGATIVE) mg/dL Urine Occult Blood Large H (NEGATIVE) Urine Nitrite Positive H (NEGATIVE) Urine Bilirubin Negative (NEGATIVE) Urine Urobilinogen Normal (NEGATIVE) mg/dL Ur Leukocyte Esterase Large H (NEGATIVE) Urine RBC >100 H (0-5) Urine WBC Packed H (0-5) Ur Squamous Epith Cells Few H (NS,R,O) Urine Bacteria Many H (NS) Departure - Departure Time of Disposition: 14:42 Disposition: Home, Self-Care 01 Clinical Impression: UTI (urinary tract infection) - Discharge Information Referrals: Alfonso Vilchis MD [Primary Care Provider] - Sepsis Event Note (ED) - Focused Exam Vital Signs: Vital Signs Temp Pulse Resp BP Pulse Ox 09/20/21 07:52 36.4 C 104 H 19 113/65 99 - My Orders Last 24 Hours: My Active Orders 09/20/21 08:15 CULTURE URINE [RM] Stat - Assessment/Plan Last 24 Hours: My Active Orders 09/20/21 08:15 CULTURE URINE [RM] Stat
== END 2021-09-20 08:30 | disposition left against medical advice (07) ==
LOC: FB.ED 07:52
DX: N39.0 Urinary tract infection, site not specified (principal); Z88.1 Allergy status to other antibiotic agents; Z88.2 Allergy status to sulfonamides; Z72.0 Tobacco use
CPT/HCPCS: 36415; 80053; 81001; 85025; 87086; 87186; 99284

== ENCOUNTER 2025-01-01 20:12 | Emergency (ER) | payer MEDICAID, OTHER ==
[2025-01-01 20:23] VITALS: BP 129/76; PULSE 96
== END 2025-01-01 20:49 | disposition home or self-care (01) ==
LOC: FB.ED 20:12
DX: S63.91XA Sprain of unspecified part of right wrist and hand, initial encounter (principal); F17.210 Nicotine dependence, cigarettes, uncomplicated; Z88.2 Allergy status to sulfonamides; Z88.8 Allergy status to other drugs, medicaments and biological substances; Z79.899 Other long term (current) drug therapy; W22.8XXA Striking against or struck by other objects, initial encounter; Y93.89 Activity, other specified
CPT/HCPCS: 73130-RT; 99283